=== PATIENT | female | born 1965 | race Caucasian/White ===

== ENCOUNTER 2018-10-07 19:31 | Emergency (ER) | payer BC ==
[2018-10-07] MEDS ORDERED: Meclizine HCl 25 MG TAB ONE (19:53)
[2018-10-07] MEDS ORDERED: predniSONE 20 MG TAB ONE (19:53)
[2018-10-07] MEDS ORDERED: Sulfameth/Trimethoprim DS 800-160mg TAB ONE (19:54)
== END 2018-10-07 20:15 | disposition home or self-care (01) ==
LOC: BURERS 19:31
DX: J01.90 Acute sinusitis, unspecified (principal); H83.09 Labyrinthitis, unspecified ear
CPT/HCPCS: 99283; J7512; J8499